=== PATIENT | female | born 1995 | race Caucasian/White ===

== ENCOUNTER 2016-09-06 21:58 | Emergency (ER) | payer OTHER ==
[2016-09-06 22:07] VITALS: O2SAT 96
--- NOTE | 2016-09-06 23:42 | EDPHY ---
H & P Stated Complaint: cough x2w, T101 at home, stiff neck x4d Time Seen by Provider: 09/06/16 23:15 HPI/ROS: Chief Complaint: Cough HPI: 21-year-old female presenting with 2 weeks of dry cough which has been worsening for the last 2 days. She is having muscle aches. Had a fever to 101 at home 2 days ago. His has had some mild stiffness in her neck. No headache. Is taking ibuprofen with relief of her symptoms but then they come back again. Has been using an albuterol inhaler with minimal relief but is not using a spacer. ROS: 10 point Review of Systems is negative except as noted in the HPI. PMH: None Medications: Oral contraceptives Allergies: No known drug allergies Social History: Occasional smoking, positive alcohol, no recreational drug use Family History: non-contributory Physical Exam: Gen: Awake, Alert, No Distress HEENT: Nose: no rhinorrhea Eyes: PERRLA, EOMI Mouth: Moist mucosa Neck: Supple, no JVD, no meningismus Chest: nontender, mild diffuse expiratory wheeze with forced expiration, no focal crackles Heart: S1, S2 normal, no murmur Abd: Soft, non-tender, no guarding Back: no CVA tenderness, no midline tenderness Ext: no edema, non-tender Skin: no rash Neuro: CN II-XII intact, Sensation grossly intact, Strength 5/5 in bilateral upper and lower extremities - Personal History LMP (Females 10-55): 15-21 Days Ago Current Tetanus/Diphtheria Vaccine: Yes Current Tetanus Diphtheria and Acellular Pertussis (TDAP): Yes - Medical/Surgical History Hx Asthma: No Hx Chronic Respiratory Disease: No Hx Diabetes: No Hx Cardiac Disease: No Hx Renal Disease: No Hx Cirrhosis: No Hx Alcoholism: No Hx HIV/AIDS: No Hx Splenectomy or Spleen Trauma: No Other PMH: denies - Social History Smoking Status: Never smoked Constitutional: Initial Vital Signs Temperature (C) 37.3 C 09/06/16 22:04 Heart Rate 110 H 09/06/16 22:04 Respiratory Rate 16 09/06/16 22:04 Blood Pressure 134/91 H 09/06/16 22:04 O2 Sat (%) 96 09/06/16 22:04 O2 Delivery Mode Room Air Allergies/Adverse Reactions: No Known Allergies Allergy (Unverified 09/06/16 22:06) Home Medications: Medication Instructions Recorded Doxycycline Hyclate 100 mg PO BID #14 tablet 09/06/16 Levora-28 Tablet 09/06/16 Medical Decision Making ED Course/Re-evaluation: Patient's symptoms of bronchitis. Will start her on doxycycline. Will also give her spacer for her albuterol inhaler. Referral for follow-up as an outpatient, return for worsening. Departure - Departure Disposition: Home, Routine, Self-Care Clinical Impression: Bronchitis Condition: Good Instructions: Acute Bronchitis (ED) Additional Instructions: Take your full course of antibiotics. Always use a spacer when he usually inhaler. Follow up with primary care physician in 3-4 days if symptoms are not improving. Return for worsening cough, shortness of breath uncontrolled fevers or chills, worsening headache, or any other concerns. Referrals: NONE *PRIMARY CARE P,. [Primary Care Provider] - As per Instructions Daysi Reyes DO [Doctor of Osteopathy] - As per Instructions Prescriptions: Doxycycline Hyclate 100 mg PO BID #14 tablet
[2016-09-06] MEDS ORDERED: DOXYCYCLINE 100 MG PREPACK#2 BTL TAKEHOME ONE (23:46)
[2016-09-07 00:09] VITALS: BP 131/83; PULSE 90; RESP 18; TEMP 99
== END 2016-09-07 00:20 | disposition home or self-care (01) ==
DX: J20.9 Acute bronchitis, unspecified (principal)